=== PATIENT | female | born 1945 | race Caucasian/White ===

== ENCOUNTER 2019-12-25 06:58 | Observation (INO) | payer MEDICARE, BC ==
[2019-12-25] MEDS ORDERED: Fentanyl 100 MCG/2 ML VIAL ONE ×4 (09:19→12:40)
[2019-12-25] MEDS ORDERED: HYDROmorphone 0.5 MG/0.5 ML SYRINGE ONE (09:20)
[2019-12-25] MEDS ORDERED: Ondansetron PF 4 MG/2 ML Vial ONE (12:08)
[2019-12-25] MEDS ORDERED: PROPOFOL 200 MG/20 ML VIAL ONE (12:08)
[2019-12-25] MEDS ORDERED: Rocuronium Bromide 10 MG/ML (10ML VIAL) ONE (12:08)
[2019-12-25] MEDS ORDERED: Lidocaine 1% PF 5 ML VIAL ONE (12:08)
[2019-12-25] MEDS ORDERED: PHENYLEPHRINE-NS 100 MCG/ML 10 ML SYRINGE ONE (12:08)
[2019-12-25] MEDS ORDERED: EPHEDRINE 25 MG/5 ML SYRINGE ONE (12:08)
[2019-12-25] MEDS ORDERED: Glycopyrrolate 0.2 MG/ML 5 ML SYRINGE ONE (12:08)
[2019-12-25] MEDS ORDERED: Ondansetron HCl/PF 4 MG/2 ML Vial IVP PRN (12:33)
[2019-12-25] MEDS ORDERED: Promethazine HCl 25 MG/ML VIAL SLOW IVP PRN (12:33)
[2019-12-25] MEDS ORDERED: Promethazine HCl 25 MG/ML VIAL IM PRN ×2 (12:33→14:03)
[2019-12-25] MEDS ORDERED: Ondansetron PF 4 MG/2 ML Vial IM PRN (14:03)
[2019-12-25] MEDS ORDERED: traMADol HCl 50 MG TAB PO PRN ×2 (14:03)
[2019-12-25] MEDS ORDERED: Milk Of Magnesia 30 ML UDCUP PO PRN (14:03)
[2019-12-25] MEDS ORDERED: Morphine 2 MG/ML SYRINGE SLOW IVP PRN (14:03)
[2019-12-25] MEDS ORDERED: diphenhydrAMINE 50 MG/ML VIAL IVP PRN (14:03)
[2019-12-25] MEDS ORDERED: Promethazine HCl 12.5 MG SUPP PR PRN (14:03)
[2019-12-25] MEDS ORDERED: Mag-Al 1200 mg/1200 mg/30 ML UDCUP PO PRN (14:03)
[2019-12-25] MEDS ORDERED: tiZANidine HCl 4 MG TAB PO PRN (14:03)
[2019-12-25] MEDS ORDERED: Morphine 4 MG/ML VIAL SLOW IVP PRN (14:03)
[2019-12-25] MEDS ORDERED: diphenhydrAMINE 25 MG CAP PO PRN (14:03)
[2019-12-25] MEDS ORDERED: Promethazine 25 MG TAB PO PRN (14:03)
[2019-12-25] MEDS ORDERED: HYDROcodone/Acetaminophen 10/325 mg Tablet PO PRN (14:03)
[2019-12-25] MEDS: Sodium Chloride 0.9% 1,000 ML IV SCH (14:28)
[2019-12-25 14:56] VITALS: BMI 28.4
[2019-12-25] MEDS: HYDROcodone/Acetaminophen 10/325 mg Tablet PO PRN ×2 (15:04→21:18)
--- NOTE | 2019-12-25 16:25 | OP ---
DATE OF PROCEDURE: 12/25/2019 ENVIRONMENTAL PROJECTS ADVISOR: Dana Salguero PA-C PROCEDURES PERFORMED: L4-5 laminectomy, facetectomy, foraminotomy, and diskectomy, interbody arthrodesis, intervertebral biomechanical device, local morselized autograft, demineralized bone matrix, posterolateral arthrodesis, pedicle screw instrumentation, L4-5. DESCRIPTION OF PROCEDURE: The patient was brought to the operating room and intubated. She was rolled in a prone position on gel-filled chest rolls. An incision was made exposing L4 and L5 and the level was confirmed by x-ray. We performed a left L4-5 laminectomy, facetectomy, foraminotomy completely decompressing left L4 and left L5. The disk itself was incised and debrided and the bony endplates were then decorticated for the purpose of arthrodesis and appropriate-sized intervertebral biomechanical PEEK device was brought into the field, filled with demineralized bone matrix and local morselized autograft, and tapped in place securely at L4-5. Next, pedicle screws were placed at left L4 and left L5 using lateral fluoroscopic guidance and the position was confirmed by x-ray. A jenaro was secured between the screws, connected by nuts, which were final tightened. The wound was then extensively irrigated. MAC hemostasis was secured. A combination of demineralized bone matrix and local morselized autograft was laid over the lamina and posterolateral surfaces for the purposes of arthrodesis. Vancomycin powder was applied and the wound was then closed in anatomic layers. Job ID: [id number]
[2019-12-25] MEDS: CEFAZOLIN 2 GM in Premix Bag 1 BAG IVPB SCH (16:32)
[2019-12-25] MEDS ORDERED: Gabapentin 300 MG CAP PO SCH (21:00)
[2019-12-26] MEDS: CEFAZOLIN 2 GM in Premix Bag 1 BAG IVPB SCH
[2019-12-26] MEDS: Sodium Chloride 0.9% 1,000 ML IV SCH (00:23)
[2019-12-26] MEDS: HYDROcodone/Acetaminophen 10/325 mg Tablet PO PRN ×2 (06:10→09:40)
[2019-12-26 07:19] VITALS: TEMP 99.7
[2019-12-26] MEDS ORDERED: Amlodipine 5 MG TAB PO SCH (09:00)
[2019-12-26 10:11] VITALS: BP 118/63
--- NOTE | 2019-12-26 10:44 | DIS ---
DATE OF ADMISSION: 12/25/2019 DATE OF DISCHARGE: 12/26/2019 HOSPITAL COURSE: The patient is a 74-year-old female, recently evaluated in our office for progressive low back pain and claudicatory leg pain. She was found to have L4-L5 spondylolisthesis and stenosis. She underwent L4-L5 decompression and fusion on 12/25/2019. Following the surgery, she was transitioned to the Med/Surg floor, where her pain has been well controlled with p.o. medications, she is tolerating a regular diet, and she is voiding appropriately. She was provided with an LSO brace to wear for all out of bed activities and she has been using this as recommended. OBJECTIVE: On exam this morning, she is awake, alert, in no acute distress. She has free active range of motion of all extremities. No focal motor weakness. Incision is clean, dry, and intact. PLAN: We will plan to dismiss to home. I have discussed home care precautions and will follow up with the patient in 2 weeks. She was provided with scripts for [place], Zanaflex, and Keflex. [facility] checked prior to discharge. Job ID: [id number]
== END 2019-12-26 09:45 | disposition home or self-care (01) ==
LOC: SDC 06:58 → SURG A 12:02
PROVIDERS: ADMIT Neurological Surgery; ATTEND Neurological Surgery
PROC: 0SG00AJ Fusion of Lumbar Vertebral Joint with Interbody Fusion Device, Posterior Approach, Anterior Column, Open Approach (ICD-10-PCS; principal; 2019-12-25)
PROC: 0ST20ZZ Resection of Lumbar Vertebral Disc, Open Approach (ICD-10-PCS; 2019-12-25)
DX: M43.16 Spondylolisthesis, lumbar region (principal); M48.061 Spinal stenosis, lumbar region without neurogenic claudication; I10 Essential (primary) hypertension; E78.5 Hyperlipidemia, unspecified; K21.9 Gastro-esophageal reflux disease without esophagitis; Z79.82 Long term (current) use of aspirin; Z79.899 Other long term (current) drug therapy; Z88.1 Allergy status to other antibiotic agents; Z88.2 Allergy status to sulfonamides; Z88.5 Allergy status to narcotic agent; Z91.041 Radiographic dye allergy status; Z98.1 Arthrodesis status; Z95.5 Presence of coronary angioplasty implant and graft; Z96.653 Presence of artificial knee joint, bilateral
CPT/HCPCS: 20930; 20936; 22612; 22840; 22853; 76000; 96361; 96365; 96366; 97116; 97139 ×2; C1768; G0378 ×2; J0690; J1170; J2001; J2405; J2704; J3010; J3370

== ENCOUNTER 2020-01-09 12:21 | Outpatient (CLI) | payer MEDICARE, BC ==
--- NOTE | 2020-01-09 12:53 | RAD ---
XR Lumbar Spine 2 Or 3 View: 01/09/2020 12:00 AM Postoperative lumbar spine COMPARISON: None FINDINGS: Fracture: None. Alignment: There is dextroscoliosis of the lumbar spine centered at L3. There is grade 1 anterolisthe sis of L4 and L5. Degenerative Change: There is moderate disc degenerative disease seen at L3-4 and L5-S1. There is mi ld multilevel facet osteoarthritic change. Bone Mineralization:There is mild diffuse osteopenia Soft tissues: No acute abnormality. Postoperative change: There is a posterior lateral fusion spinal construct on the left at L4-5 consis ting of pedicle screws at L4 and L5 with interconnecting jenaro. There is an intervertebral disc cage at L4-5. Instrumentation projects in the expected position without gross evidence of complication. IMPRESSION: Postoperative lumbar spine with moderate lumbar spondylosis and mild lumbar scoliosis.
== END 2020-01-09 12:22 | disposition home or self-care (01) ==
LOC: TBSIIMAG 12:21
PROVIDERS: ATTEND Neurological Surgery
DX: M43.16 Spondylolisthesis, lumbar region (principal); M47.816 Spondylosis without myelopathy or radiculopathy, lumbar region; M41.9 Scoliosis, unspecified; Z98.890 Other specified postprocedural states
CPT/HCPCS: 72100

== ENCOUNTER 2020-01-09 13:25 | Outpatient (CLI) | payer MEDICARE, BC ==
--- NOTE | 2020-01-09 14:18 | CT ---
Exam: Lumbar spine CT without contrast HISTORY: Acute radicular low back pain. Postoperative exam. COMPARISON: None FINDINGS: There is no retroperitoneal or paraspinal mass, lymphadenopathy or hematoma Atherosclerosis of the aorta Visualized solid organs do not demonstrate any acute abnormality 5 lumbar type vertebra. Lumbar spine vertebral body height is maintained. No fracture. Unilateral lef t-sided transpedicular screw at L4 and L5. L4 and L5 screws traverse the pedicle but are lateral to the associated vertebral body and terminating in the left paraspinal region. Resection of the left L4 inferior facet is noted. There is bone graft material along the fusion hardware. Disc prosthesis at L4-L5 is identified Spondylolisthesis: 0.9 mm of anterolisthesis of L4 upon L5. 2.6 mm of anterolisthesis of L3 upon L4 Limited evaluation the contents of the central spinal canal and neural foramina due to technique T12-L1 and L1-L2: No significant central canal stenosis or significant neural foraminal narrowing L2-L3: Broad-based disc bulge abuts the thecal sac. No significant central canal stenosis or signific ant neural foraminal narrowing L3-L4: Broad-based disc bulge, ligament flavum thickening and facet hypertrophy result in moderate to severe central canal stenosis. Moderate bilateral neural foraminal narrowing due to uncovertebral hypertrophy L4-L5: Disc prosthesis. Abnormal soft tissue attenuation at the left facetectomy site. Abnormal soft tissue is noted along the posterior margin of the disc space which may represent residual disc material versus scar tissue. There is at least moderate central canal stenosis. Moderate right and mo derate to severe left foraminal narrowing due to abnormal soft tissue attenuation which may in part be due to disc material and/or scar tissue L5-S1: Broad-based disc bulge abuts the thecal sac. Partial obscuration of the traversing S1 nerve ro ots. No significant stenosis of the thecal sac. Mild bilateral neural foraminal narrowing IMPRESSION: 1. Unilateral left-sided transpedicular screw at L4 and L5 is detailed above. Screws are left of the vertebral bodies. 2. Abnormal soft tissue attenuation along the anterior epidural space and in both neural foramina at L4-L5 which may represent scar tissue pr residual disc material. Moderate central canal stenosis at L4-L5 along with moderate right and moderate to severe left neural foraminal narrowing 3. Partial obscuration of bilateral traversing S1 nerve roots likely due to disc material. Transcribed Date/Time: 01/09/2020 2:25 PM
== END 2020-01-09 13:26 | disposition home or self-care (01) ==
LOC: TBSIIMAG 13:25
PROVIDERS: ATTEND Neurological Surgery
DX: M54.16 Radiculopathy, lumbar region (principal); M48.061 Spinal stenosis, lumbar region without neurogenic claudication; M43.16 Spondylolisthesis, lumbar region; M47.816 Spondylosis without myelopathy or radiculopathy, lumbar region; M41.9 Scoliosis, unspecified; Z98.890 Other specified postprocedural states
CPT/HCPCS: 72100; 72131

== ENCOUNTER 2020-02-09 09:03 | Outpatient (CLI) | payer MEDICARE, BC ==
--- NOTE | 2020-02-09 10:30 | RAD ---
LUMBAR SPINE 2 VIEWS: Date: 02/09/2020 HISTORY: Back pain. Spondylolisthesis. Follow-up back surgery. Comparison with exam of 01/09/2020. FINDINGS: Pedicle screws on the left at L4-5 with interbody implant at L4-5. There is an anterolisthesis at L4- 5, Grade I-II, which is stable. Alignment is maintained at the other levels. Mild degenerative change with facet hypertrophy again no muna. IMPRESSION: Degenerative and postoperative changes appear stable when compared to 01/09/2020. POS: MANUEL
== END 2020-02-09 09:04 | disposition home or self-care (01) ==
LOC: TBSIIMAG 09:03
PROVIDERS: ATTEND Neurological Surgery
DX: M43.16 Spondylolisthesis, lumbar region (principal); M47.816 Spondylosis without myelopathy or radiculopathy, lumbar region; Z98.890 Other specified postprocedural states
CPT/HCPCS: 72100

== ENCOUNTER 2020-02-09 11:56 | Outpatient (CLI) | payer MEDICARE, BC, OTHER ==
[2020-02-09 14:07] LABS: #Eosinphils 0.2 thou/uL (0.0-0.7); #Lymphocytes 2.5 thou/uL (1.20-3.40); #Monocytes 0.5 thou/uL (0.11-0.59); #Neutrophils 3.7 thou/uL (1.40-6.50); %Basophils 0.5 % (0.0-1.0); %Eosinophils 3.5 % (0.0-10.0); %Lymphocytes 35.5 % (21.0-51.0); %Monocytes 7.4 % (0.0-10.0); %Neutrophils 53.1 % (42.0-75.0); Mean Corpuscular HGB CONC 33.3 g/dL (32.0-36.0); Mean Corpuscular Volume 87.1 fL (78.0-98.0); Mean Platelet Volume 8.1 fL (7.4-10.4); Platelet Count 233 thou/uL (130-400); RBC Distribution Width 13.8 % (11.5-14.5); Red Blood Cell (RBC) Count 4.83 mill/uL (4.20-5.40); White Blood Cell (WBC) Count 6.9 thou/uL (4.8-10.8)
[2020-02-09 15:23] LABS: Anion Gap 14 mmol/L (10-20); BUN (Urea Nitrogen) 15 mg/dL (9.8-20.1); Calc. Creatinine Clearance 0 mL/min (70-130); Calcium 9.9 mg/dL (7.8-10.44); Carbon Dioxide 25 mmol/L (23-31); Chloride 109 mmol/L (98-107); Estimated GFR-MDRD 62; Glucose 107 mg/dL (83-110); Potassium 5.3 mmol/L (3.5-5.1); Sodium 143 mmol/L (136-145)
[2020-02-10 12:24] LABS: SARS-CoV-2 MS2 Positive; SARS-CoV-2 N Gene Negative; SARS-CoV-2 S Gene Negative; SARS-CoV-2 orf1ab Negative
== END 2020-02-09 11:57 | disposition home or self-care (01) ==
LOC: LABBT 11:56
PROVIDERS: ATTEND Neurological Surgery
DX: Z01.812 Encounter for preprocedural laboratory examination (principal); Z11.59 Encounter for screening for other viral diseases; M43.16 Spondylolisthesis, lumbar region
CPT/HCPCS: 72100; 80048; 85025; U0003; 87635

== ENCOUNTER 2020-02-12 08:24 | Day surgery (SDC) | payer MEDICARE, BC ==
[2020-02-09 12:59] VITALS: BMI 28.3
[2020-02-12] MEDS ORDERED: Fentanyl 100 MCG/2 ML VIAL ONE ×4 (08:56→11:21)
[2020-02-12] MEDS ORDERED: Ondansetron HCl/PF 4 MG/2 ML Vial IVP PRN (10:23)
[2020-02-12] MEDS ORDERED: Promethazine HCl 25 MG/ML VIAL SLOW IVP PRN (10:23)
[2020-02-12] MEDS ORDERED: Meperidine HCl/PF 25 MG/ML VIAL SLOW IVP PRN (10:23)
[2020-02-12] MEDS ORDERED: HYDROmorphone 2 MG/ML VIAL SLOW IVP PRN (10:23)
--- NOTE | 2020-02-12 11:07 | OP ---
DATE OF PROCEDURE: 02/12/2020 [employer]IL [employer]ATION TEACHER: Jose M. PROCEDURES PERFORMED: Removal of hardware at L4-L5, exploration of spinal fusion at L4-L5, revision fusion, posterolateral arthrodesis at L4-L5, BMP, demineralized bone matrix. DESCRIPTION OF PROCEDURE: The patient was brought to the operating room and intubated. She was rolled in a prone position on gel-filled chest rolls. The previous incision was reopened, and the L4-L5 level was exposed, and the previous hardware was identified. We removed the screws and rods at L4-L5 without difficulty. We explored the spinal fusion, it was not solid. We prepared the posterolateral surfaces for the purpose of arthrodesis and placed a combination of BMP on [place] with demineralized bone matrix in both lateral recesses at L4-L5. MAC hemostasis was secured. Vancomycin powder was applied, and the wound was then closed in anatomic layers. Job ID: [id number]
[2020-02-12] MEDS ORDERED: HYDROcodone/Acetaminophen 5/325 mg Tablet ONE (12:01)
[2020-02-12] MEDS ORDERED: Rocuronium Bromide 10 MG/ML (10ML VIAL) ONE (12:34)
[2020-02-12] MEDS ORDERED: PHENYLEPHRINE-NS 100 MCG/ML 10 ML SYRINGE ONE (12:34)
[2020-02-12] MEDS ORDERED: PROPOFOL 200 MG/20 ML VIAL ONE (12:34)
[2020-02-12] MEDS ORDERED: Lidocaine 1% PF 5 ML VIAL ONE (12:34)
[2020-02-12] MEDS ORDERED: Ondansetron PF 4 MG/2 ML Vial ONE (12:34)
[2020-02-12] MEDS ORDERED: Glycopyrrolate 0.2 MG/ML 5 ML SYRINGE ONE (12:34)
[2020-02-12] MEDS ORDERED: Dexamethasone 20 MG/5 ML VIAL ONE (12:34)
== END 2020-02-12 13:15 | disposition home or self-care (01) ==
LOC: SDC 08:24
PROVIDERS: ATTEND Neurological Surgery
PROC: 0SG00K1 Fusion of Lumbar Vertebral Joint with Nonautologous Tissue Substitute, Posterior Approach, Posterior Column, Open Approach (ICD-10-PCS; principal; 2020-02-12)
DX: T84.226A Displacement of internal fixation device of vertebrae, initial encounter (principal); M43.16 Spondylolisthesis, lumbar region; I10 Essential (primary) hypertension; M79.7 Fibromyalgia; Z79.82 Long term (current) use of aspirin; Z79.899 Other long term (current) drug therapy; Z88.1 Allergy status to other antibiotic agents; Z88.2 Allergy status to sulfonamides; Z88.5 Allergy status to narcotic agent; Z91.041 Radiographic dye allergy status; Z91.048 Other nonmedicinal substance allergy status; Z95.5 Presence of coronary angioplasty implant and graft; Z98.1 Arthrodesis status
CPT/HCPCS: 76000; 93005; 93010; C1768; J0690; J3010; J3370

== ENCOUNTER 2025-01-23 08:41 | Outpatient (CLI) | payer MEDICARE, BC ==
[2025-01-23 10:06] LABS: #Basophils 0.03 10x3/uL (0.0-0.2); #Eosinophils 0.50 10x3/uL (0.0-0.7); #Monocytes 0.58 10x3/uL (0.11-0.59); #Neutrophils 5.88 10x3/uL (1.40-6.50); %Basophils 0.4 % (0.0-1.0); %Eosinophils 6.3 % (0.0-10.0); %Lymphocytes 12.4 % (21.0-51.0); %Monocytes 7.3 % (0.0-10.0); %Neutrophils 73.3 % (42.0-75.0); Hematocrit 41.4 % (36.0-47.0); Hemoglobin 13.0 g/dL (12.0-16.0); Mean Corpuscular Hemoglobin 27.7 pg (27.0-31.0); Mean Corpuscular Volume 88.3 fL (78.0-98.0); Platelet Count 218 10x3/uL (130-400); Red Blood Cell (RBC) Count 4.69 mill/uL (4.20-5.40); White Blood Cell (WBC) Count 8.00 10x3/uL (4.8-10.8)
[2025-01-23 10:11] LABS: Bacteria/HPF None Seen HPF (None Seen); Glucose, Urine (Dipstick) Normal (Negative); Leukocyte Negative Leu/uL (Negative); Protein, Urine (Dipstick) Negative (Neg-Trace); RBC/HPF 0-3 HPF (0-3); Specific Gravity, Urine 1.004 (1.002-1.036); WBC/HPF 0-3 HPF (0-3)
[2025-01-23 10:23] LABS: INR-International Normal Ratio 1.0; PTT 30.7 sec (22.9-36.1); Prothrombin Time 13.3 sec (12.0-14.7)
[2025-01-23 10:24] LABS: Anion Gap 11 mmol/L (10-20); BUN (Urea Nitrogen) 16 mg/dL (9.8-20.1); Calc. Creatinine Clearance 0 mL/min (70-130); Calcium 9.5 mg/dL (7.8-10.44); Carbon Dioxide 27 mmol/L (23-31); Chloride 106 mmol/L (98-107); Glucose 105 mg/dL (83-110); Sodium 140 mmol/L (136-145)
[2025-01-23 11:18] LABS: Potassium 4.0 mmol/L (3.5-5.1)
== END 2025-01-23 08:42 | disposition home or self-care (01) ==
LOC: LABBT 08:41
PROVIDERS: ATTEND Urology
DX: Z01.818 Encounter for other preprocedural examination (principal); R82.90 Unspecified abnormal findings in urine; N28.1 Cyst of kidney, acquired; R35.0 Frequency of micturition; N39.41 Urge incontinence; R10.30 Lower abdominal pain, unspecified; N30.10 Interstitial cystitis (chronic) without hematuria; L65.9 Nonscarring hair loss, unspecified; N30.00 Acute cystitis without hematuria
CPT/HCPCS: 71046; 80048; 81001; 85025; 85610; 85730; 87086; 93005; 93010